=== PATIENT | female | born 1940 | race Caucasian/White ===

== ENCOUNTER → 2016-11-28 | Outpatient (CLI) | payer MEDICARE, OTHER ==
[~2016-11-28] MED LIST: REGADENOSON INJ 0.4 MG/5 ML DISP.SYRIN IV ONE
--- NOTE | 2016-11-28 14:17 | DRAGON STRESS TEST REPORT ---
INTRAVENOUS LEXISCAN CARDIOLITE STRESS TEST USING SINGLE PHOTON EMMISION COMPUTERIZED TOMOGRAPHIC. DATE OF PROCEDURE: November 28, 2016 INDICATION : Chest pain CARDIAC RISK FACTORS: Diabetes, hypertension, dyslipidemia RESTING EKG: Sinus rhythm, no baseline ST-T wave changes STRESS EKG: No significant changes noted with LexiScan bolus REASON FOR TERMINATION: Protocol. PROCEDURE REPORT: Baseline heart rate 77 beats per minute with blood pressure of 116/61. Patient had no significant complaints. Heart rate at 2 minutes post bolus 95 with a blood pressure of 147/60. 3 minutes post bolus heart rate 90 with blood pressure of 123/67. No significant EKG changes were noted. Patient had no significant complaints during the procedure or postprocedure. CONCLUSIONS: Normal EKG and hemodynamic response to IV LexiScan. NUCLEAR DATA: At rest the patient was given 14.92 millicuries of technetium 99 sestamibi injected intravenously. As per protocol rest gated SPECT images were obtained. Subsequently the patient was given intravenous LexiScan at a dose of 0.4 mg in 5 mL intravenously, followed by flush with normal saline. Subsequently the stress dose of 42.0 millicuries of technetium 99 sestamibi was injected intravenously. As per protocol stress gated images were obtained. NUCLEAR INTERPRETATION: Both raw and processed data were used for interpretation. Visual, qualitative, computer-generated quantitative data was used. There was good myocardial uptake of technetium compound. Motion artifact and soft tissue attenuations were noted. Increased visceral uptake was noted. No definitive areas of transient perfusion defect noted. No definitive areas of fixed perfusion defect or scars noted. EKG gated imaging showed LV EF at 76 %, rest and stress gated EF similar visually. T. I D. ratio was 1.22, this is borderline for female patient. Lung heart ratio noted to be within normal limits 0.33. No significant extracardiac and abnormal radiotracer activities were noted. RV free wall uptake was noted to be WNL. IMPRESSION: Also refer to comments under nuclear interpretation. Also test results needs to be interpreted in the context of pretest probability. 1. There is no definitive scintigraphic evidence of LexiScan induced myocardial ischemia. 2. There is no definitive scintigraphic evidence of myocardial infarction/scar. 3. EKG gated imaging shows left ejection fraction of approximately 76 %. 4. Clinical correlation requested as occasionally single vessel disease or balanced ischemia could be missed. In approximately 10% of the cases Lexiscan may not cause adequate vasodilatory stress. 5. Borderline transient ischemic dilatation is noted however based on recent literature review, in the absence of perfusion abnormality may not be significant but clinical correlation is requested. RECOMMENDATIONS: Aggressive risk factor modification, medical therapy. Clinical correlation with echocardiogram derived ejection fraction. Inability to exercise by itself can lead to increased cardiovascular event risks. Consider cardiology consultation if clinically indicated. I AM AVAILABLE FOR CARDIOLOGY CONSULTATION AND FOLLOWUP IF REQUESTED BY PMD Phillip Jalloh M.D., [employer] servicer, Board certified in cardiovascular diseases, Nuclear cardiology, Echocardiography Cardiac CT and cardiac MRI Ph. [phone] [facility]ENTERLa Nena
--- NOTE | 2016-11-28 17:14 | XCELERA REPORT ---
[address] [address] Lower Extremity Arterial Evaluation Name: GUILHERME CHILDRESS Age: 76 yrs Gender: Female : 1940 Patient Status: Outpatient Patient Location: RAD Study Date: 11/28/2016 08:40 AM Procedure: A color flow and duplex scan of the lower extremity arteries was performed bilaterally with velocity and waveform anaylsis. 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 Biphasic in the infrageniculate vessels. The ankle-brachial index was not done karen to pain. 0-19 % stenosis is noted at the infrageniculate vessels. Left Side Arterial Evaluation Normal velocity, waveform and triphasic flow are present, from the Common Femoral artery to the Popliteal artery. Biphasic in the infrageniculate vessels. The ankle-brachial index was not done karen to pain. 0-19 % stenosis is noted at the infrageniculate vessels. Interpretation Summary Mild hemodynamically significant lesions in the bilateral lower extremities, on duplex imaging, at rest. : BILL MCINTYRE > Jayme Chatman
== END ==
LOC: RAD 06:36
PROVIDERS: ATTEND Internal Medicine Cardiovascular Disease
DX: R07.9 Chest pain, unspecified (principal); R60.9 Edema, unspecified
CPT/HCPCS: 93925 ×2; 93017; 78452; A9500; J2785; Q9969

== ENCOUNTER → 2017-05-21 | Outpatient (CLI) | payer MEDICARE, OTHER ==
--- NOTE | 2017-05-21 11:27 | RADIOLOGY REPORT (SQ) ---
EXAM DESCRIPTION: C SP 4 OR 5 VIEWS COMPLETED DATE/TIME: 05/21/2017 11:17 am REASON FOR STUDY: CERVICALGIA M54.2 CERVICALGIA COMPARISON: None. NUMBER OF VIEWS: Five views. TECHNIQUE: AP, lateral, obliques and odontoid radiographic images acquired of the cervical spine. LIMITATIONS: Mild motion artifact FINDINGS: MINERALIZATION: Osteoporotic ALIGNMENT: Anatomic. VERTEBRAE: Vertebral bodies of normal height. DISCS: High-grade disc space loss of height at C4-5. FORAMINA: On the right side, mild foraminal narrowing from facet and uncovertebral hypertrophy is see n at C3-4 and C4-5. On the left side, mild foraminal narrowing at C3-4 is present from facet and unc overtebral hypertrophy. LATERAL AND POSTERIOR ELEMENTS: Facets, lateral masses and spinous processes without significant find ings. Diffuse multilevel facet arthropathy is present HARDWARE: None in the spine. SOFT TISSUES: No masses or calcifications. Lung apices clear. OTHER: No other significant finding. IMPRESSION: Mild diffuse degenerative changes TECHNICAL DOCUMENTATION: JOB ID: [id number]- All Rights Reserved
== END ==
LOC: OD 10:30
PROVIDERS: ATTEND Physician Assistant
DX: M54.2 Cervicalgia (principal)
CPT/HCPCS: 72050

== ENCOUNTER → 2017-06-23 | Outpatient (CLI) | payer MEDICARE, OTHER ==
--- NOTE | 2017-06-23 15:35 | RADIOLOGY REPORT (SQ) ---
EXAM DESCRIPTION: ELBOW LEFT AP/LAT COMPLETED DATE/TIME: 06/23/2017 1:14 pm REASON FOR STUDY: PAIN IN LEFT ELBOW M25.522 PAIN IN LEFT ELBOW COMPARISON: None. NUMBER OF VIEWS: Four views. TECHNIQUE: AP, lateral, and both oblique radiographic images acquired of the left elbow. LIMITATIONS: None. FINDINGS: MINERALIZATION: Normal. BONES: No acute fracture or dislocation. No worrisome bone lesions. JOINT: No effusion. SOFT TISSUES: No soft tissue swelling. No foreign body. OTHER: No other significant finding. IMPRESSION: NEGATIVE STUDY OF THE LEFT ELBOW. NO RADIOGRAPHIC EVIDENCE OF ACUTE INJURY. TECHNICAL DOCUMENTATION: JOB ID: [id number] [employer]- All Rights Reserved
== END ==
LOC: OD 12:59
PROVIDERS: ATTEND Physician Assistant
DX: M25.522 Pain in left elbow (principal)

== ENCOUNTER → 2017-07-23 | Outpatient (CLI) | payer MEDICARE, OTHER ==
--- NOTE | 2017-07-24 08:15 | XCELERA REPORT ---
[address] [address] Upper Extremity Venous Evaluation Name: GUILHERME CHILDRESS Age: 76 yrs Gender: Female : 1940 Patient Status: Outpatient Patient Location: Study Date: 07/23/2017 09:21 AM Procedure: Unilateral duplex scan of the left upper extremity veins was performed, including responses to compression and other maneuvers. Reason For Study: LUE PAIN Ordering Physician: EKATERINA BOTELLO PA-C Performed By: Javan Choudhary Left Sided Venous Evaluation Normal vessel filling wall to wall, compression and augmentation as well as Colour flow down to the forearm veins. Interpretation Summary No duplex evidence of DVT or obstruction in the left upper extremity. : EKATERINA BOTELLO PA-C > Jayme Chatman
== END ==
LOC: SP 08:47
PROVIDERS: ATTEND Physician Assistant
DX: M79.602 Pain in left arm (principal)
CPT/HCPCS: 93971

== ENCOUNTER → 2017-10-31 | Outpatient (CLI) | payer MEDICARE, OTHER ==
[2017-10-31 12:30] LABS: ALANINE AMINOTRANSFERASE 40 U/L (9-52); ALBUMIN 4.2 g/dL (3.5-5.0); ALKALINE PHOSPHATASE 93 U/L (38-126); ANION GAP 11 (5-19); ASPARTATE AMINO TRANSFERASE 41 U/L (14-36); BILIRUBIN,DIRECT 0.3 mg/dL (0.0-0.4); BILIRUBIN,TOTAL 0.8 mg/dL (0.2-1.3); BLOOD UREA NITROGEN 28 mg/dL (7-20); CALCIUM 9.3 mg/dL (8.4-10.2); CARBON DIOXIDE 28 mmol/L (22-30); CHLORIDE 99 mmol/L (98-107); GLUCOSE 236 mg/dL (75-110); POTASSIUM 4.5 mmol/L (3.6-5.0); SODIUM 137.8 mmol/L (137-145); TOTAL PROTEIN 6.8 g/dL (6.3-8.2)
== END ==
LOC: OD 11:35
PROVIDERS: ATTEND Internal Medicine Cardiovascular Disease
DX: I50.9 Heart failure, unspecified (principal)
CPT/HCPCS: 36415; 80053

== ENCOUNTER → 2018-01-16 | Outpatient (CLI) | payer MEDICARE, OTHER ==
--- NOTE | 2018-01-16 11:15 | RADIOLOGY REPORT (SQ) ---
EXAM DESCRIPTION: U/S RETROPERITON (RENAL/AORTA) COMPLETED DATE/TIME: 01/16/2018 10:09 am REASON FOR STUDY: CKD STAGE 3 N18.3 CHRONIC KIDNEY DISEASE, STAGE 3 (MODERATE) COMPARISON: CT abdomen pelvis 11/07/2014 TECHNIQUE: Dynamic and static grayscale images acquired of the kidneys and bladder and recorded on P ACS. Additional selected color Doppler and spectral images recorded. LIMITATIONS: Obesity FINDINGS: Very limited study due to patient body habitus. Right kidney is 10 cm in length without hydronephrosis. Grossly normal cortical thickness. Left kidney is 9 cm in length with mild upper pole cortical thinning. No hydronephrosis. Bladder decompressed, not well seen. IMPRESSION: Limited study. No hydronephrosis TECHNICAL DOCUMENTATION: JOB ID: [id number] [employer]- All Rights Reserved Reading location - IP/workstation name: [email or web address]
== END ==
LOC: RAD 09:38
PROVIDERS: ATTEND Internal Medicine Nephrology
DX: N18.3 Chronic kidney disease, stage 3 (moderate) (principal)
CPT/HCPCS: 76770

== ENCOUNTER → 2019-01-13 | Outpatient (CLI) | payer MEDICARE, OTHER ==
--- NOTE | 2019-01-13 16:16 | XCELERA REPORT ---
[address] [address] Lower Extremity Venous Evaluation Procedure: Color flow and duplex imaging bilaterally of the veins of the lower extremities as well as the Common Femoral veins. Right Sided Venous Evaluation Large, non vascular subcutaneous mass in the posterior calf. Normal vessel filling wall to wall, compression and augmentation as well as Colour flow down to the infrageniculate veins. Left Sided Venous Evaluation Normal vessel filling wall to wall, compression and augmentation as well as Colour flow down to the infrageniculate veins. Interpretation Summary No duplex evidence of DVT or obstruction in the bilateral lower extremities. Non vascular mass in right calf. Name: GUILHERME CHILDRESS Age: 78 yrs Gender: Female : 1940 Patient Status: Outpatient Patient Location: Study Date: 01/13/2019 01:06 PM Reason For Study: EDEMA Ordering Physician: FLEIX REDDY Performed By: Carolyn Pisano : FELIX REDDY > Jayme Chatman
== END ==
LOC: SP 12:09
PROVIDERS: ATTEND Family Medicine
DX: L03.119 Cellulitis of unspecified part of limb (principal); R60.9 Edema, unspecified
CPT/HCPCS: 93970

== ENCOUNTER 2020-04-05 17:26 | Emergency (ER) | payer MEDICARE, OTHER ==
--- NOTE | 2020-04-05 18:52 | ER Document Report ---
ED Medical Screen (RME) - General Chief Complaint: Dizziness Stated Complaint: LIGHTHEADED,BACK PAIN,LEG SWELLING Time Seen by Provider: 04/05/20 18:46 Primary Care Provider: FELIX REDDY MD [Primary Care Provider] - Follow up as needed Mode of Arrival: Ambulatory Information source: Patient Notes: HPI; 79-year-old female presents to the emergency room complaining of general weakness, headache, and dizziness for the past 3 days. Denies any falls. No nausea, no vomiting, no recent head trauma or head injuries. States "I just do not feel myself". Denies any slurred speech, numbness, tingling. PE: Alert and oriented x3. Negative fast exam. Lungs: Clear to auscultation without rales, rhonchi, wheezes. Heart: Regular rate and rhythm without murmurs, rubs, gallops. I have greeted and performed a rapid initial assessment of this patient. A comprehensive ED assessment and evaluation of the patient, analysis of test results and completion of the medical decision making process will be conducted by additional ED providers. I have specifically instructed the patient or family members with the patient to immediately return to any nursing staff s hould anything change in the patient's condition or with their chief complaint. TRAVEL OUTSIDE OF THE [place] IN LAST 30 DAYS: No - Related Data Allergies/Adverse Reactions: aspirin [Aspirin] Allergy (Unknown, Verified 06/07/16 15:23) GI upset Penicillins Allergy (Unknown, Verified 06/07/16 15:23) rash,GI upset codeine [Codeine] Adverse Reaction (Unknown, Verified 04/09/16 10:47) GI upset oxycodone [Oxycodone] Adverse Reaction (Verified 04/09/16 10:47) GI upset Past Medical History - Past Medical History Cardiac Medical History: Reports: Hx Atrial Fibrillation - controlled., Hx Hypertension Denies: Hx Coronary Artery Disease, Hx Heart Attack Pulmonary Medical History: Reports: Hx Asthma - inhler, Hx Pneumonia - 2013 Denies: Hx Bronchitis, Hx COPD Neurological Medical History: Denies: Hx Cerebrovascular Accident, Hx Seizures Endocrine Medical History: Reports: Hx Diabetes Mellitus Type 2 GI Medical History: Denies: Hx Hepatitis, Hx Hiatal Hernia, Hx Ulcer Musculoskeltal Medical History: Reports Hx Arthritis - GENERALIZED /degenerative Infectious Medical History: Denies: Hx Hepatitis Past Surgical History: Reports: Hx Cholecystectomy, Hx Hysterectomy, Hx Orthopedic Surgery - bilateral tkr and thp, back. Denies: Hx Mastectomy - BIOPSY LEFT BREAST 2 YRS AGO.OK, Hx Open Heart Surgery, Hx Pacemaker - Immunizations Hx Diphtheria, Pertussis, Tetanus Vaccination: No Physical Exam - Vital signs Vitals: Temp Pulse Resp BP Pulse Ox 98.9 F 72 16 141/58 H 94 04/05/20 18:04 04/05/20 18:04 04/05/20 18:04 04/05/20 18:04 04/05/20 18:04 Course - Vital Signs Vital signs: Temp Pulse Resp BP Pulse Ox 98.9 F 72 16 141/58 H 94 04/05/20 18:04 04/05/20 18:04 04/05/20 18:04 04/05/20 18:04 04/05/20 18:04 Doctor's Discharge - Discharge Referrals: FELIX REDDY MD [Primary Care Provider] - Follow up as needed
[2020-04-05 19:24] LABS: ABSOLUTE EOSINOPHILS # (AUTO) 0.2 10^3/uL (0.0-0.6); ABSOLUTE MONOCYTES (AUTO) 0.3 10^3/uL (0.1-1.4); BASOPHILS % (AUTO) 0.5 % (0-2); HEMOGLOBIN 12.1 g/dL (12.0-15.5); TOTAL CELLS COUNTED % (AUTO) 100 %
--- NOTE | 2020-04-05 19:25 | RADIOLOGY REPORT (SQ) ---
EXAM DESCRIPTION: CT HEAD WITHOUT IMAGES COMPLETED DATE/TIME: 04/05/2020 7:15 pm REASON FOR STUDY: dizzy COMPARISON: None. TECHNIQUE: Axial images acquired through the brain without intravenous contrast. Images reviewed wi th bone, brain and subdural windows. Additional sagittal and coronal reconstructions were generated. Images stored on PACS. All CT scanners at this facility use dose modulation, iterative reconstruction, and/or weight based d osing when appropriate to reduce radiation dose to as low as reasonably achievable (ALARA). [facility]: Dose Right [facility]: CareDose [facility]: Dose Right [facility]: Teradose 4D [facility]: Smart [employer] RADIATION DOSE: CT Rad equipment meets quality standard of care and radiation dose reduction techniq ues were employed. CTDIvol: 53.2 mGy. DLP: 1017 mGy-cm. mGy. LIMITATIONS: None. FINDINGS: VENTRICLES: Normal size and contour. CEREBRUM: No masses. No hemorrhage. No midline shift. No evidence for acute infarction. Normal gra y/white matter differentiation. No areas of low density in the white matter. CEREBELLUM: No masses. No hemorrhage. No alteration of density. No evidence for acute infarction. EXTRAAXIAL SPACES: No fluid collections. No masses. ORBITS AND GLOBE: No intra- or extraconal masses. Normal contour of globe without masses. CALVARIUM: No fracture. PARANASAL SINUSES: No fluid or mucosal thickening. SOFT TISSUES: No mass or hematoma. OTHER: No other significant finding. IMPRESSION: NORMAL BRAIN CT WITHOUT CONTRAST. EVIDENCE OF ACUTE STROKE: NO. COMMENT: Quality ID # [id number]: Final reports with documentation of one or more dose reduction techniques (e.g., Automated exposure control, adjustment of the mA and/or kV according to patient size, use of iterative reconstruction technique) TECHNICAL DOCUMENTATION: JOB ID: [id number] 2010 [employer]- All Rights Reserved Reading location - IP/workstation name: [email or web address]
--- NOTE | 2020-04-05 19:27 | RADIOLOGY REPORT (SQ) ---
EXAM DESCRIPTION: CHEST 2 VIEWS IMAGES COMPLETED DATE/TIME: 04/05/2020 7:18 pm REASON FOR STUDY: weakness COMPARISON: 06/11/2016 EXAM PARAMETERS: NUMBER OF VIEWS: two views TECHNIQUE: Digital Frontal and Lateral radiographic views of the chest acquired. RADIATION DOSE: NA LIMITATIONS: none FINDINGS: LUNGS AND PLEURA: No opacities, masses or pneumothorax. No pleural effusion. MEDIASTINUM AND HILAR STRUCTURES: No masses or contour abnormalities. HEART AND VASCULAR STRUCTURES: Heart normal size. No evidence for failure. BONES: No acute findings. HARDWARE: Neurostimulator electrodes in the thoracic spine. OTHER: No other significant finding. IMPRESSION: NO ACUTE RADIOGRAPHIC FINDING IN THE CHEST. TECHNICAL DOCUMENTATION: JOB ID: [id number] 2010 [employer]- All Rights Reserved Reading location - IP/workstation name: [email or web address]
[2020-04-05 19:30] LABS: APPEARANCE,URINE CLEAR; BILIRUBIN,URINE NEGATIVE (NEGATIVE); COLOR,URINE STRAW; GLUCOSE, URINE NEGATIVE (NEGATIVE); KETONES,URINE NEGATIVE (NEGATIVE); LEUKOCYTE ESTERASE,URINE NEGATIVE (NEGATIVE); NITRITE,URINE NEGATIVE (NEGATIVE); PROTEIN,URINE NEGATIVE (NEGATIVE); URINE SPECIFIC GRAVITY 1.006; UROBILINOGEN,URINE NEGATIVE mg/dL (<2.0)
[2020-04-05 19:35] LABS: ABSOLUTE LYMPHOCYTES (AUTO) 1.5 10^3/uL (0.5-4.7); EOSINOPHILS % (AUTO) 3.8 % (0-6); HEMATOCRIT 35.5 % (36.0-47.0); MEAN CORPUSCULAR HEMOGLOBIN 31.1 pg (27.0-33.4); MEAN CORPUSCULAR HGB CONC 34.1 g/dL (32.0-36.0); MEAN CORPUSCULAR VOLUME 91 fl (80-97); MONOCYTES % (AUTO) 6.4 % (3-13); PLATELET COUNT 138 10^3/uL (150-450); RED BLOOD COUNT 3.89 10^6/uL (3.72-5.28); RED CELL DISTRIBUTION WIDTH 13.4 % (11.5-14.0); SEGMENTED NEUTROPHILS % (AUTO) 60.3 % (42-78)
[2020-04-05 19:40] LABS: ALBUMIN 4.4 g/dL (3.5-5.0); ALKALINE PHOSPHATASE 84 U/L (38-126); ANION GAP 7 (5-19); ASPARTATE AMINO TRANSFERASE 30 U/L (14-36); BILIRUBIN,TOTAL 0.8 mg/dL (0.2-1.3); BLOOD UREA NITROGEN 17 mg/dL (7-20); CALCIUM 9.7 mg/dL (8.4-10.2); CARBON DIOXIDE 38 mmol/L (22-30); CHLORIDE 92 mmol/L (98-107); GLUCOSE 117 mg/dL (75-110); POTASSIUM 3.8 mmol/L (3.6-5.0); TOTAL PROTEIN 7.3 g/dL (6.3-8.2)
--- NOTE | 2020-04-05 23:59 | ER Document Report ---
ED General - General Chief Complaint: Dizziness Stated Complaint: LIGHTHEADED,BACK PAIN,LEG SWELLING Time Seen by Provider: 04/05/20 18:46 Primary Care Provider: FELIX REDDY MD [Primary Care Provider] - Follow up as needed Mode of Arrival: Ambulatory TRAVEL OUTSIDE OF THE [place] IN LAST 30 DAYS: No - HPI Notes: Patient is a 79-year-old female who presents to the emergency department for evaluation. She states she has been feeling dizzy, just not herself. She states she had a headache, but does not now. She denies any associated visual changes. No fevers. No hearing loss. No tinnitus. She stated that occasionally the world seem to be moving, but it has not happened much today. No recent URI symptoms. She did have one episode of diarrhea earlier today, but had no recent antibiotics, and had a normal bowel movement yesterday. She d enies any chest pain or shortness of breath. She states she has a diminished appetite, perhaps mild nausea, but no emesis. No recent medication changes. - Related Data Allergies/Adverse Reactions: aspirin [Aspirin] Allergy (Unknown, Verified 06/07/16 15:23) GI upset Penicillins Allergy (Unknown, Verified 06/07/16 15:23) rash,GI upset codeine [Codeine] Adverse Reaction (Unknown, Verified 04/09/16 10:47) GI upset oxycodone [Oxycodone] Adverse Reaction (Verified 04/09/16 10:47) GI upset Home Medications: List reviewed with patient verbally. She is unsure of doses, but medications include spironolactone, simvastatin, ropinirole, promethazine, omeprazole, metoprolol, Synthroid, Zaroxolyn, glipizide, Lasix, Advair, Lexapro Past Medical History - General Information source: Patient - Social History Smoking Status: Never Smoker Family History: Reviewed & Not Pertinent, DM, Hypertension - Past Medical History Cardiac Medical History: Reports: Hx Atrial Fibrillation - controlled., Hx Hypertension Denies: Hx Coronary Artery Disease, Hx Heart Attack Pulmonary Medical History: Reports: Hx Asthma - inhler, Hx Pneumonia - 2012 Denies: Hx Bronchitis, Hx COPD Neurological Medical History: Denies: Hx Cerebrovascular Accident, Hx Seizures Endocrine Medical History: Reports: Hx Diabetes Mellitus Type 2, Hx Hypothyroidism - [place] GI Medical History: Denies: Hx Hepatitis, Hx Hiatal Hernia, Hx Ulcer Musculoskeletal Medical History: Reports Hx Arthritis - GENERALIZED /degenerative Psychiatric Medical History: Reports: Hx Depression Infectious Medical History: Denies: Hx Hepatitis Past Surgical History: Reports: Hx Cholecystectomy, Hx Hysterectomy, Hx Orthopedic Surgery - bilateral tkr and thp, back. Denies: Hx Mastectomy - BIOPSY LEFT BREAST 2 YRS AGO.OK, Hx Open Heart Surgery, Hx Pacemaker - Immunizations Hx Diphtheria, Pertussis, Tetanus Vaccination: No Hx Pneumococcal Vaccination: 10/06/12 Review of Systems - Review of Systems Constitutional: See HPI Gastrointestinal: See HPI -: Yes All other systems reviewed and negative Physical Exam - Vital signs Vitals: Temp Pulse Resp BP Pulse Ox 98.9 F 72 16 141/58 H 94 04/05/20 18:04 04/05/20 18:04 04/05/20 18:04 04/05/20 18:04 04/05/20 18:04 - Notes Notes: Vital signs reviewed, please refer to chart. Head is normocephalic, atraumatic. Pupils equal round, reactive to light. Neck is supple without meningismus. Heart is irregularly irregular. Lungs are clear to auscultation bilaterally. Abdomen is soft, nontender, normoactive bowel sounds throughout. Extremities wi thout cyanosis, clubbing. Posterior calves are nontender. She has the peripheral skin changes associated with PVD, peripheral pulses are equal. Skin is warm and dry. Patient is awake, alert, oriented x3. Cranial nerves II - XII are grossly intact without focal neurological deficits. Strength is plus 5 out of 5 bilateral upper and lower extremities. Sensation is intact. Reflexes symmetrical. Intact [id number], rapid alternating movements, [id number]. Course - Re-evaluation Re-evalutation: 04/06/20 00:03 Patient presents to the emergency department for evaluation of dizziness and "just not feeling right." She had laboratory investigations as ordered through the triage. Her labs are largely unremarkable. She does have some abnormalities, but they are not surprising in a nearly 80-year-old female. Her exam is unremarkable. She did not have an EKG, I am ordering that now. Assuming it is unremarkable, she is to follow-up closely with her primary care provider tomorrow. She is to return to the ED with worsening. 04/06/20 00:52 EKG is unremarkable for any acute changes. Patient is feeling improved, is anxious for discharge. She is to follow-up with her primary care provider, return to the ED with worsening or new concerning symptoms of any sort. - Vital Signs Vital signs: Temp Pulse Resp BP Pulse Ox 98.9 F 72 17 131/57 H 95 04/05/20 18:04 04/05/20 18:04 04/06/20 00:01 04/06/20 00:01 04/06/20 00:01 - Laboratory Result Diagrams: 04/05/20 19:00 04/05/20 19:00 Laboratory results interpreted by me: 04/05/20 04/05/20 04/05/20 19:00 19:00 19:00 Hct 35.5 L Plt Count 138 L Sodium 136.8 L Chloride 92 L Carbon Dioxide 38 H Est GFR ( Amer) 53 L Est GFR (MDRD) Non-Af 44 L Glucose 117 H Urine Blood SMALL H - Diagnostic Test Radiology reviewed: Reports reviewed Radiology results interpreted by me: 04/06/20 00:04 Chest X-Ray 04/05/20 18:49 IMPRESSION: NO ACUTE RADIOGRAPHIC FINDING IN THE CHEST. Head CT 04/05/20 18:49 IMPRESSION: NORMAL BRAIN CT WITHOUT CONTRAST. EVIDENCE OF ACUTE STROKE: NO. - EKG Interpretation by Me Additional EKG results interpreted by me: 04/06/20 00:53 Sinus mechanism with a rate of 77 bpm. Left axis deviation, borderline QT interval. Nonspecific ST changes, but no acute ST changes concerning for elevation. No significant change compared to prior study of 2016. Discharge - Discharge Clinical Impression: Dizziness Condition: Stable Disposition: HOME, SELF-CARE Instructions: Dizziness ([facility]) Additional Instructions: No clear cause was found for your symptoms today. Please follow-up with your primary care provider in 1 to 2 days. Return to the emergency department with worsening or new concerning symptoms of any sort. Referrals: FELIX REDDY MD [Primary Care Provider] - Follow up as needed
[2020-04-06 01:02] VITALS: BP 124/60
--- NOTE | 2020-04-06 09:46 | EKG REPORT ---
SEVERITY:- BORDERLINE ECG - SINUS RHYTHM BORDERLINE LEFT AXIS DEVIATION BORDERLINE PROLONGED QT INTERVAL : Confirmed by: Carla Taylor MD 06-Apr-2020 09:45:16
== END 2020-04-06 01:14 | disposition home or self-care (01) ==
LOC: ER 17:26
DX: R42 Dizziness and giddiness (principal); M54.9 Dorsalgia, unspecified; M79.89 Other specified soft tissue disorders; Z88.6 Allergy status to analgesic agent; Z88.0 Allergy status to penicillin
CPT/HCPCS: 36415; 70450; 71046; 80053; 81001; 84484; 85025; 93005; 93010; 99284

== ENCOUNTER 2020-09-05 05:43 | Day surgery (SDC) | payer MEDICARE, OTHER ==
[2020-08-17 12:12] LABS: HEMATOCRIT 30.8 % (36.0-47.0); MEAN CORPUSCULAR HEMOGLOBIN 28.6 pg (27.0-33.4); MEAN CORPUSCULAR HGB CONC 32.5 g/dL (32.0-36.0); MEAN CORPUSCULAR VOLUME 88 fl (80-97); PLATELET COUNT 104 10^3/uL (150-450); RED CELL DISTRIBUTION WIDTH 14.4 % (11.5-14.0); WHITE BLOOD COUNT 3.5 10^3/uL (4.0-10.5)
[2020-08-17 12:22] LABS: INTERNATIONAL RATION (INR) 1.05; PROTHROMBIN TIME 13.9 SEC (11.4-15.4)
[2020-08-17 12:23] LABS: PARTIAL THROMBOPLASTIN TIME 29.8 SEC (23.5-35.8)
--- NOTE | 2020-08-17 12:45 | RADIOLOGY REPORT (SQ) ---
EXAM DESCRIPTION: CHEST PA/LATERAL IMAGES COMPLETED DATE/TIME: 08/17/2020 11:53 am REASON FOR STUDY: PRE-OP COMPARISON: None. EXAM PARAMETERS: NUMBER OF VIEWS: two views TECHNIQUE: Digital Frontal and Lateral radiographic views of the chest acquired. RADIATION DOSE: NA LIMITATIONS: none FINDINGS: LUNGS AND PLEURA: No opacities, masses or pneumothorax. No pleural effusion. MEDIASTINUM AND HILAR STRUCTURES: No masses or contour abnormalities. HEART AND VASCULAR STRUCTURES: Heart normal size. No evidence for failure. BONES: No acute findings. HARDWARE: Neurostimulator electrodes are present in the thoracic spine. OTHER: No other significant finding. IMPRESSION: NO SIGNIFICANT RADIOGRAPHIC FINDING IN THE CHEST. TECHNICAL DOCUMENTATION: JOB ID: [id number] 2010 [employer]- All Rights Reserved Reading location - IP/workstation name: [email or web address]
[2020-08-17 13:14] LABS: APPEARANCE,URINE SLIGHTLY-CLOUDY; BILIRUBIN,URINE NEGATIVE (NEGATIVE); COLOR,URINE YELLOW; GLUCOSE, URINE 150 mg/dL (NEGATIVE); KETONES,URINE NEGATIVE (NEGATIVE); LEUKOCYTE ESTERASE,URINE NEGATIVE (NEGATIVE); NITRITE,URINE NEGATIVE (NEGATIVE); PROTEIN,URINE 30 mg/dL (NEGATIVE); URINE SPECIFIC GRAVITY 1.026; UROBILINOGEN,URINE NEGATIVE mg/dL (<2.0)
--- NOTE | 2020-08-18 00:37 | EKG REPORT ---
SEVERITY:- OTHERWISE NORMAL ECG - SINUS RHYTHM BORDERLINE LEFT AXIS DEVIATION : Confirmed by: Phillip Jalloh 18-Aug-2020 00:35:43
[~2020-09-05 05:43] MED LIST changes: +CEFAZOLIN 1 GM/D5W RTU 1 GM/50 ML RTUPB IV PRN; -REGADENOSON INJ 0.4 MG/5 ML DISP.SYRIN IV ONE; +RINGERS SOLUTION,LACTATED 1,000 ML IV PRN
[2020-09-05] MEDS ORDERED: CEFAZOLIN 1 GM/D5W RTU 1 GM/50 ML RTUPB IV ONE (05:57)
[2020-09-05] MEDS ORDERED: LIDOCAINE 2% INJ-PF (20 MG/ML) 10 ML AMPUL ONE (07:19)
[2020-09-05] MEDS ORDERED: FENTANYL CITRATE INJ/PF 100 MCG/2 ML AMPUL ONE (07:19)
[2020-09-05] MEDS ORDERED: ONDANSETRON HCL INJ/PF 4 MG/2 ML SDV ONE (07:19)
[2020-09-05] MEDS ORDERED: PROPOFOL INJ 200 MG/20 ML VIAL IV ONE (07:19)
[2020-09-05] MEDS ORDERED: SODIUM BICARBONATE 4.2% INJ (2.5 MEQ/5 ML) VIAL ONE (07:28)
[2020-09-05] MEDS ORDERED: LIDOCAINE 1% INJ-PF (10 MG/ML) 30 ML SDV ONE (07:28)
[2020-09-05] MEDS ORDERED: BUPIVACAINE HCL 0.25% /EPINEPHRINE INJ/PF 30 ML SDV ONE (07:28)
[2020-09-05] MEDS ORDERED: CLINDAMYCIN PHOSPHATE INJ 300 MG/2 ML SDV ONE (08:22)
--- NOTE | 2020-09-05 12:15 | RADIOLOGY REPORT (SQ) ---
EXAM DESCRIPTION: NO CHG FLUORO; PELVIS AP IMAGES COMPLETED DATE/TIME: 09/05/2020 10:07 am REASON FOR STUDY: SPINAL CORD STIMULATOR REVISION ALVARO EXCHANGE ASSISTED WITH FLUORO IN OR G89.4 CH RONIC PAIN SYNDROME Z79.01 [facility] (CURRENT) USE OF ANTICOAGULANTS COMPARISON: None. FLUOROSCOPY TIME: 0.1 minutes 2 images saved to PACS. TECHNIQUE: Intra-operative images acquired during surgical procedure to evaluate progress. NUMBER OF IMAGES: 2 LIMITATIONS: None. FINDINGS: Neurostimulator battery pack overlying left lower quadrant. IMPRESSION: IMAGE(S) OBTAINED DURING PROCEDURE. COMMENT: Quality ID [id number]: Final reports for procedures using fluoroscopy that document radiation exp osure indices, or exposure time and number of fluorographic images (if radiation exposure indices are not available) Please consult full operative report of the attending physician for description of the procedure. TECHNICAL DOCUMENTATION: JOB ID: [id number] 2010 [employer]- All Rights Reserved Reading location - IP/workstation name: [email or web address]
--- NOTE | 2020-09-05 12:15 | RADIOLOGY REPORT (SQ) ---
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 FLUOROSCOPY TIME: 0.1 minutes 2 images saved to PACS. TECHNIQUE: Intra-operative images acquired during surgical procedure to evaluate progress. NUMBER OF IMAGES: 2 LIMITATIONS: None. FINDINGS: Neurostimulator battery pack overlying left lower quadrant. IMPRESSION: IMAGE(S) OBTAINED DURING PROCEDURE. COMMENT: Quality ID [id number]: Final reports for procedures using fluoroscopy that document radiation exp osure indices, or exposure time and number of fluorographic images (if radiation exposure indices are not available) Please consult full operative report of the attending physician for description of the procedure. TECHNICAL DOCUMENTATION: JOB ID: [id number] 2010 [employer]- All Rights Reserved Reading location - IP/workstation name: [email or web address]
[2020-09-05 13:12] VITALS: BP 129/55
--- NOTE | 2020-10-13 08:36 | Operative Report ---
Operative Report DATE OF SURGERY: 09/05/20 PREOPERATIVE DIAGNOSIS: Nonfunctioning spinal cord stimulator system POSTOPERATIVE DIAGNOSIS: Same OPERATION: Removal of spinal cord stimulator pulse generator SURGEON: MONROE HORNER ANESTHESIA: LMAC TISSUE REMOVED OR ALTERED: Spinal cord stimulator pulse generator COMPLICATIONS: None ESTIMATED BLOOD LOSS: Minimal PROCEDURE: After obtaining informed consent advised the patient of the risk and benefits the patient was taken to the operating room. She was placed in the prone position comfort was assessed visually and verbally. X-rays were applied MAC anesthesia was administered. She was then prepped with chlorhexidine with appropriate drying time prior to draping over the surgical site of the right gluteal region fluoroscopy had been treatment used prior to draping to evaluate the position of the generator rater was located underneath the [place] the skin was anesthetized with 1% lidocaine with bicarb followed by quarter percent bupivacaine with epinephrine suitable anesthesia was established and the skin incision was made without difficulty or pain or distress. Stasis was obtained with electrocautery as necessary. The pulse generator was removed from the pocket without difficulty. It was disconnected from its leads. We note the decision was made prior to the case to let the leads remain in place as the patient did not want a secondary incision and the primary problem was discomfort from the plate battery and inability to use the system the wound was then copiously irrigated with Betadine containing irrigation solution. Hemostasis was reevaluated and was satisfactory. The capsule of the pocket was closed with interrupted interrupted inverted vertical mattress sutures using 2-0 Polysorb. Cutaneous tissue was then closed with 3-0 Polysorb using the same technique. And came together quite nicely. This was glued with Dermabond allowed to dry Telfa and sponge Tegaderms were placed. She was then taken back to the PACU without difficulty or problem. The wounds were reinfiltrated with quarter percent bupivacaine with epinephrine prior to leaving the room patient remained stable and comfortable. End of dictation see that I have a copy of this note
== END 2020-09-05 10:40 | disposition home or self-care (01) ==
LOC: OROUT 05:43
PROVIDERS: ATTEND Pain Medicine Interventional Pain Medicine
DX: T85.193A Other mechanical complication of implanted electronic neurostimulator, generator, initial encounter (principal); Y83.1 Surgical operation with implant of artificial internal device as the cause of abnormal reaction of the patient, or of later complication, without mention of misadventure at the time of the procedure; M54.16 Radiculopathy, lumbar region; J45.909 Unspecified asthma, uncomplicated; M06.9 Rheumatoid arthritis, unspecified; I10 Essential (primary) hypertension; E78.00 Pure hypercholesterolemia, unspecified; M19.90 Unspecified osteoarthritis, unspecified site; E11.9 Type 2 diabetes mellitus without complications; Z20.828 Contact with and (suspected) exposure to other viral communicable diseases; Z79.891 Long term (current) use of opiate analgesic; Z79.4 Long term (current) use of insulin; Z01.812 Encounter for preprocedural laboratory examination; Z79.899 Other long term (current) drug therapy; Z51.81 Encounter for therapeutic drug level monitoring
CPT/HCPCS: 93005; 36415; 82962; 85027; 85610; 85730; 81001; 71046; 72170; 93010; 63688; U0003 ×2; J3490 ×5; J0690; J3010; J2405; J2704; C9803 ×2; 87635